=== PATIENT | male | born 1940 | race Caucasian/White ===

== ENCOUNTER 2017-06-01 13:38 | Inpatient (IN) ==
[2017-06-01 14:13] LABS: MANUAL DIFF NEEDED? NO
[2017-06-01 14:22] LABS: BE -5.2 mmoll (-3.0-3.0); BLOOD TYPE ARTERIAL; DRAW SITE R RADIAL; METHB 0.6 % (0.0-1.5); PCO2(98.6) 37 mmHg (35-45); SAMPLE BLOOD; SAO2 79.2 % (95.0-100.0); THB 13.9 g/dL (11.5-17.4); pH(98.6) 7.34 (7.35-7.45)
[2017-06-01 14:24] LABS: MODALITY ROOM AIR; PO2(98.6) 43 mmHg (60-100)
[2017-06-01 14:25] LABS: ALLEN TEST YES
[2017-06-01 14:28] LABS: BASO% 0.2 % (0.0-0.8); EOS# 0.07 X1000 (0.0-0.7); EOS% 0.9 % (0.0-10.0); HEMATOCRIT 38.7 % (42.0-52.0); HEMOGLOBIN 13.3 g/dL (14.0-18.0); IMM GRAN# 0.02 X1000 (0.0-0.04); IMM GRAN% 0.2 % (0.0-0.5); LYMPH# 1.28 X1000 (1.2-3.4); LYMPH% 15.7 % (20.5-51.1); MCH 31.7 PG (27-31); MCHC 34.4 g/dL (33-37); MCV 92.4 FL (81-99); MONO# 0.94 X1000 (0.11-0.59); MONO% 11.5 % (1.7-9.3); MPV 10.8 FL (7.4-10.4); NEUT% 71.5 % (42.2-75.2); PLT 178 X1000 (130-400); RBC 4.19 XMIL (4.7-6.1)
[2017-06-01 14:41] LABS: INR 1.02 (0.86-1.15); PROTIME 14.2 Seconds (12.1-15.5)
[2017-06-01 14:42] LABS: PTT PL 41.6 Seconds (22.6-43.9)
[2017-06-01 14:46] LABS: ALBUMIN 4.2 g/dL (3.5-5.0); CALCIUM 8.5 mg/dL (8.8-10.2); MAGNESIUM 1.8 mg/dL (1.5-2.7); TOTAL BILIRUBIN 0.5 mg/dL (0.20-1.00); TOTAL PROTEIN 7.8 g/dL (6.3-8.3)
[2017-06-01] MEDS ORDERED: ZOFRAN IV PRN (17:52)
[2017-06-01] MEDS: NS 1,000 ML IV SCH (18:14)
[2017-06-01] MEDS: LOVENOX SUBQ SCH (18:14)
[2017-06-01] MEDS: HUMALOG DOSE (PARKWAY) SUBQ SCH (20:41)
[2017-06-02] MEDS: NORCO-7.5 PO PRN ×2 (05:31→13:54)
[2017-06-02] MEDS: LOVENOX SUBQ SCH ×2 (05:33→17:30)
[2017-06-02] MEDS: XANAX PO PRN ×2 (05:33→13:54)
[2017-06-02 06:01] LABS: HEMATOCRIT 38.2 % (42.0-52.0); HEMOGLOBIN 13.1 g/dL (14.0-18.0); MCH 31.6 PG (27-31); MCHC 34.3 g/dL (33-37); MPV 10.9 FL (7.4-10.4); RBC 4.15 XMIL (4.7-6.1)
[2017-06-02 06:20] LABS: AGAP 11; ALBUMIN 4.1 g/dL (3.5-5.0); ALKALINE PHOSPHATASE 82 U/L (32-122); BUN 12 mg/dL (8-22); CALCIUM 8.6 mg/dL (8.8-10.2); CHLORIDE 103 mmol/L (98-107); COSMO 279; GOT 12 U/L (10-34); GPT 11 U/L (10-44); POTASSIUM 3.5 mmol/L (3.5-5.1); SODIUM 138 mmol/L (136-145); TCO2 24 mmol/L (25-35); TOTAL PROTEIN 7.3 g/dL (6.3-8.3)
[2017-06-02] MEDS: PRILOSEC PO SCH (06:36)
[2017-06-02] MEDS: HUMALOG DOSE (PARKWAY) SUBQ SCH ×4 (06:36→20:40)
[2017-06-02] MEDS ORDERED: NORCO-7.5 PO PRN (06:39)
[2017-06-02] MEDS ORDERED: XANAX PO PRN (06:39)
[2017-06-02] MEDS ORDERED: DUONEB (A & A) INH PRN (06:40)
[2017-06-02] MEDS: NS 1,000 ML IV SCH ×2 (07:22→20:39)
[2017-06-02] MEDS: PROTONIX PO SCH (07:43)
[2017-06-02] MEDS: ASPIRIN PO SCH (08:37)
[2017-06-02] MEDS: LEXAPRO PO SCH (08:37)
[2017-06-02] MEDS: TEARISOL OPH SOLUTION OPH SCH ×2 (08:37→20:40)
[2017-06-02] MEDS: ISORDIL PO SCH (08:37)
[2017-06-02] MEDS: LIPITOR PO SCH (08:38)
[2017-06-02] MEDS: RANEXA PO SCH ×2 (08:38→20:40)
[2017-06-02] MEDS ORDERED: XANAX PO SCH (09:00)
[2017-06-02] MEDS ORDERED: TOPROL XL PO SCH (21:00)
[2017-06-03] MEDS: XANAX PO PRN ×2 (03:21→14:46)
[2017-06-03] MEDS: NORCO-7.5 PO PRN ×2 (03:21→14:45)
[2017-06-03] MEDS: LOVENOX SUBQ SCH (05:05)
[2017-06-03] MEDS: HUMALOG DOSE (PARKWAY) SUBQ SCH ×2 (06:16→10:22)
[2017-06-03] MEDS: PRILOSEC PO SCH (06:17)
[2017-06-03] MEDS: PROTONIX PO SCH (06:20)
[2017-06-03] MEDS: ASPIRIN PO SCH ×2 (08:48→08:54)
[2017-06-03] MEDS: LIPITOR PO SCH (08:54)
[2017-06-03] MEDS: LEXAPRO PO SCH (08:54)
[2017-06-03] MEDS: RANEXA PO SCH (08:54)
[2017-06-03] MEDS: ISORDIL PO SCH (08:54)
[2017-06-03] MEDS: NS 1,000 ML IV SCH (08:55)
[2017-06-03] MEDS: TEARISOL OPH SOLUTION OPH SCH (08:59)
[2017-06-03 13:07] VITALS: BP 138/77
== END 2017-06-03 15:01 | disposition home or self-care (01) ==
LOC: P.ED 13:38 → SUATTDRO 15:54 → P.MEDSURG 15:54
PROVIDERS: ATTEND Internal Medicine